=== PATIENT | male | born 1955 | race Caucasian/White ===

== ENCOUNTER 2016-12-25 18:20 | Emergency (ER) | payer MEDICAID, OTHER ==
[~2016-12-25] VITALS: Ht 152.4 cm; Wt 69.0 kg
[~2016-12-25 18:20] MED LIST: CLON-412 PO; DUR25P TOP; HYDR2TAB3 PO; TRAZ100T15 PO
[2016-12-25 18:23] VITALS: Ht 152.4 cm; Wt 69.0 kg
[2016-12-25] MEDS ORDERED: HYDROCODONE/APAP (5/325) TAB PO ONE (19:30)
[2016-12-25] MEDS ORDERED: DIPHTH/TET/ACEL PERTUSS (ADULT) 0.5 ML VIAL IM* ONE (19:30)
--- NOTE | 2016-12-25 19:45 | RADRPT ---
PROCEDURE: CT Brain without. CLINICAL INDICATION: Fall injury. TECHNIQUE: A CT of the brain was performed on multidetector high-resolution CT scanner utilizing a xial sections from the skull base through the vertex without contrast. The scan was reviewed in sof t tissue brain and high frequency resolution bone algorithm windows. Images were reviewed on a high -resolution PACS workstation. One or more the following does reduction techniques were utilized: Aut omated exposure control, adjustment of the mA/ or kV according to patient's size, or use of iterativ e reconstruction technique. The exam CTDI = 44.77 mGy and the DLP = 720.23 mGy-cm. COMPARISON: Brain CT 10/13/2012. FINDINGS: The ventricles and sulci are mildly prominent indicative of volume loss. There is no intracranial h emorrhage, mass effect or midline shift. No abnormal intra-axial or extra-axial fluid collections a re seen. The gao/white matter differentiation is preserved. There are minimal scattered foci of hypoattenuation in the white matter, which are nonspecific in et iology but likely reflect chronic small vessel ischemic changes. There are minimal intracranial vas cular calcifications consistent with atherosclerosis. The visualized paranasal sinuses are essential ly clear. Left parietal scalp soft tissue swelling is noted without underlying skull fracture. IMPRESSION: 1. No acute intracranial hemorrhage, transcortical infarction or mass effect. 2. Minimal intracranial atherosclerosis and chronic small vessel ischemic changes. 3. Mild generalized cerebral volume loss. 4. Left parietal scalp soft tissue swelling is noted without underlying skull fracture. RPTAT: HH .Phil Hutchinson MD, Date Time Electronically viewed and signed by .Phil Hutchinson MD, MD on 12/25/2016 19:44 .N/
--- NOTE | 2016-12-25 19:52 | ERD ---
ER Documentation Chief Complaint Date/Time DATE: 12/25/16 Chief Complaint Scalp laceration, head injury HPI The patient is a 61-year-old male who presents the Emergency Department with complaint of scalp laceration. 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 The patient admits to loss of consciousness for a couple seconds (per onlookers), and to sustaining a scalp laceration. He reports 6/10 throbbing pain localized to the site of the laceration, which has been intermittently bleeding since the injury. The patient notes that he has applied pressure to the wound, though it continues to bleed, particularly after taking a shower. He denies any syncope or seizure. Denies visual changes, diplopia, blurred vision, vision loss, dizziness, weakness, neck pain, neck stiffness, numbness or paresthesias. Denies any nausea or vomiting. The patient denies any current anticoagulant use, though does note that he was taking Coumadin until approximately one year ago. The patient's tetanus status is unknown. ROS All systems reviewed and are negative except as per history of present illness. Medications Home Meds Reported Medications Trazodone Hcl* (Trazodone Hcl*) 100 Mg Tablet, 200 MG PO HS 11/05/12 Hydromorphone Hcl (Dilaudid) 2 Mg Tab, PO BID 10/13/12 Fentanyl Patch* (Duragesic Patch*) 1 Patch Patch, 50 MCG TOP EVERY 3 DAYS, 0 Refills 10/13/12 Clonazepam* (Klonopin*) 1 Mg Tablet, PO QID, 0 Refills 09/19/09 Allergies Allergies: Coded Allergies: No Known Drug Allergies (Verified Allergy, Mild, 12/25/12) PMhx/Soc History of Surgery: No Anesthesia Reaction: No Hx Neurological Disorder: No Hx Respiratory Disorders: No Hx Cardiac Disorders: No Hx Psychiatric Problems: No Hx Miscellaneous Medical Probl: Yes (etoh abuser, DVT, Back pain) Hx Alcohol Use: Yes Hx Substance Use: No Hx Tobacco Use: Yes Smoking Status: Former smoker Physical Exam Vitals Vital Signs Date Time Temp Pulse Resp B/P Pulse Ox O2 Delivery O2 Flow Rate FiO2 12/25/16 18:23 98.1 71 18 154/91 99 Physical Exam GENERAL: Well-developed, well-nourished, male, in no acute distress. HEENT: Head is normocephalic. Parietal scalp laceration with small hematoma. No scleral pallor or icterus. Pupils equal, round and reactive to light. Extraocular movements intact. Conjunctiva pink. No raccoon eyes. No miller sign. No nasal CSF leak. Moist mucous membranes. Clear oropharynx. NECK: Supple. No masses, no tenderness, no lymphadenopathy. Trachea midline. No nuchal rigidity. No posterior midline tenderness. RESPIRATORY: Lungs are clear to auscultation bilaterally. Equal breath sounds. Normal expiratory effort. CARDIOVASCULAR: Regular rate and rhythm. S1 and S2 normal. GASTROINTESTINAL: Abdomen is soft, non-tender, and non-distended. BACK: No midline tenderness. EXTREMITIES: No clubbing, cyanosis, or edema. Normal skin perfusion. Moving all extremities. Muscle tone is normal. No focal swelling or erythema. NEUROLOGIC: The patient is alert, awake, and oriented x 3. No focal neurologic deficits. Cranial nerves are grossly intact. Motor and sensation grossly intact. INTEGUMENT: 1.5 cm linear laceration to the parietal scalp. No active bleeding. PSYCHIATRIC: Cooperative. Appropriate. Results 24 hrs Current Medications Medications (Trade) Dose Ordered Sig/Pat Route PRN Reason Start Time Stop Time Status Last Admin Dose Admin Diphtheria/ Tetanus/Acell Pertussis (Adacel) 0.5 ml ONCE ONCE IM* 12/25/16 19:30 12/25/16 19:31 DC 12/25/16 19:48 Acetaminophen/ Hydrocodone Bitart ([place] (5/325)) 1 tab ONCE ONCE PO 12/25/16 19:30 12/25/16 19:31 DC 12/25/16 19:38 Procedures/MDM The patient's case was reviewed and discussed with ED supervising/attending physician Dr. Rodriguez, who agrees with the plan of care including treatment and advanced imaging of appropriate. DIAGNOSTIC TESTS AND INTERPRETATION: PROCEDURE: CT Brain without. CLINICAL INDICATION: Fall injury. TECHNIQUE: A CT of the brain was performed on multidetector high-resolution CT scanner utilizing axial sections from the skull base through the vertex without contrast. The scan was reviewed in soft tissue brain and high frequency resolution bone algorithm windows. Images were reviewed on a high- resolution PACS workstation. One or more the following does reduction techniques were utilized: Automated exposure control, adjustment of the mA/ or kV according to patient's size, or use of iterative reconstruction technique. The exam CTDI = 44.77 mGy and the DLP = 720.23 mGy-cm. COMPARISON: Brain CT 10/13/2012. FINDINGS: The ventricles and sulci are mildly prominent indicative of volume loss. There is no intracranial hemorrhage, mass effect or midline shift. No abnormal intra- axial or extra-axial fluid collections are seen. The gao/white matter differentiation is preserved. There are minimal scattered foci of hypoattenuation in the white matter, which are nonspecific in etiology but likely reflect chronic small vessel ischemic changes. There are minimal intracranial vascular calcifications consistent with atherosclerosis. The visualized paranasal sinuses are essentially clear. Left parietal scalp soft tissue swelling is noted without underlying skull fracture. IMPRESSION: 1. No acute intracranial hemorrhage, transcortical infarction or mass effect. 2. Minimal intracranial atherosclerosis and chronic small vessel ischemic changes. 3. Mild generalized cerebral volume loss. 4. Left parietal scalp soft tissue swelling is noted without underlying skull fracture. .Phil Hutchinson MD, MD Date Time Electronically viewed and signed by .Phil Hutchinson MD, MD on 12/25/2016 19: 44 PROCEDURE NOTE: Laceration repair. INDICATIONS: 1.5 cm linear laceration scalp laceration. CONSENT: Consent was obtained from the patient prior to the procedure. Indications, risks and benefits were explained at length. PROCEDURAL SUMMARY: A time out protocol was performed prior to initiating the procedure. The patient was positioned appropriately. Normal saline and Betadine were used for wound irrigation. The wound was then explored, and no foreign body visualized. The area was prepared and draped in the usual sterile manner with the wound exposed. Two franca are placed with good wound closure and good wound approximation. Bleeding was minimal. The patient tolerated the procedure well without complications. The wound was dressed with bacitracin and sterile gauze. Standard post procedure care was explained and return precautions were given. On re-evaluation, the patient was resting comfortably with no pain localized to the site of injury. He was neurovascularly and neurologically intact post-procedure. Medical Decision Making: The patient is a 61-year-old male presenting to the Emergency Department with a scalp laceration s/p accidental slip and fall. Otherwise, the patient had no significant deformity, step-offs, altered mental status, or neurologic deficits on physical examination. CT head performed revealed no acute intracranial hemorrhage. No clinical evidence of significant head injury, basilar skull fracture, intracranial bleeding, spinal cord injury or any other emergent medical condition. The patient's condition was stable throughout their stay in the emergency department without any neurologic deficits present. Upon re-evaluation, the patient reports no new complaints. The patient's scalp laceration was stapled. He had good wound closure and wound approximation, and tolerated the procedure well. The patient was neurovascularly and neurologically intact prior to and status post laceration repair. Standard post-procedure care was explained to the patient at length. Upon my review and interpretation of the patient's presentation, I believe that the patient's symptoms are most consistent with scalp laceration, hematoma and head injury. At this time, the patient is in stable condition, and no signs of altered mental status, and therefore can be discharged home with strict return precautions for signs of deteriorating or worsening condition, including vomiting, altered mental status, neurologic deficit, headache, persistent fever above 100.4 F, loss of consciousness, syncope, deformities, seizure. The patient is instructed to follow up with his primary care provider within 1-2 days for wound check, re-evaluation and further management, and staple removal in 7 days, or return to the ER sooner for any new or worsening symptoms. I shared my medical decision making and plan with the patient at length and in great detail, and they verbally understand and agree with the plan for further observation and care as an outpatient. At the time of discharge, all questions were answered. Departure Diagnosis: Primary Impression: Scalp laceration Encounter type: initial encounter Qualified Code: S01.01XA - Scalp laceration, initial encounter Additional Impression: Head injury with loss of consciousness Condition: Stable Patient Instructions: HEAD INJURY, No Wake-Up (Adult), Laceration, Scalp Additional Instructions: Follow up with your primary medical provider in 2 days for wound check, reevaluation and further management. Staple removal in 7 days. Return to the ED sooner for any new or worsening symptoms. BRENT SHETTY PA-C Dec 25, 2016 19:52
== END 2016-12-25 20:17 | disposition home or self-care (01) ==
LOC: FTE 18:20
DX: S01.01XA Laceration without foreign body of scalp, initial encounter (principal); W01.198A Fall on same level from slipping, tripping and stumbling with subsequent striking against other object, initial encounter; Y92.9 Unspecified place or not applicable; Z23 Encounter for immunization; Z87.891 Personal history of nicotine dependence
CPT/HCPCS: 12001; 70450; 90471; 90715; Z7502; Z7610

== ENCOUNTER 2017-03-05 16:37 | Emergency (ER) | payer OTHER ==
[~2017-03-05] VITALS: Ht 177.8 cm; Wt 85.0 kg
[2017-03-05] MEDS ORDERED: SOD CHLORIDE 0.9% 1,000 ML IV STA (16:40)
[2017-03-05] MEDS ORDERED: LORAZEPAM 2 MG INJ IV STA (16:40)
[2017-03-05 16:44] VITALS: Ht 177.8 cm; Wt 85.0 kg
[2017-03-05 17:20] LABS: BASOPHILS % 0.7 % (0.0-2.0); EOSINOPHILS % 0.2 % (0.0-7.0); HEMATOCRIT 39.7 % (42.0-52.0); LYMPHOCYTES # 0.7 10^3/ul (0.8-2.9); LYMPHOCYTES % 10.8 % (15.0-51.0); MEAN CORPUSCULAR HEMOGLOBIN 38.6 pg (29.0-33.0); MEAN CORPUSCULAR HGB CONC 35.3 g/dl (32.0-37.0); MEAN CORPUSCULAR VOLUME 109.4 fl (82.0-101.0); MEAN PLATELET VOLUME 10.5 fl (7.4-10.4); MONOCYTE # 0.7 10^3/ul (0.3-0.9); MONOCYTES % 11.8 % (0.0-11.0); NEUTROPHIL # 4.6 10^3/ul (1.6-7.5); NEUTROPHILS % 75.8 % (39.0-77.0); PLATELET COUNT 148 10^3/UL (140-415); RED BLOOD COUNT 3.63 10^6/ul (4.70-6.10)
--- NOTE | 2017-03-05 17:21 | RADRPT ---
PROCEDURE: XR Chest 1 View. CLINICAL INDICATION: Shortness of breath. Seizure. TECHNIQUE: AP view of the chest was obtained. COMPARISON: CR CHEST 12/25/2012 FINDINGS: The cardiomediastinal silhouette is within normal limits. Azygos fissure is identified. 1.4 cm nodul ar density is identified along the right azygos fissure. No consolidations are identified. No pneum othorax is seen. Atelectasis is noted at the left lung base. Osseous structures are intact. IMPRESSION: 1.4 cm nodular density in the right upper lobe, along an azygos fissure. This could reflect a lung n odule. Appearance is unchanged from prior exam. If further characterization is needed, CT is recomme nded. Atelectasis at the left lung base. RPTAT: AA .Bubba Riley MD, MD Date Time Electronically viewed and signed by .Bubba Riley MD, MD on 03/05/2017 17:20 .P/
--- NOTE | 2017-03-05 17:28 | RADRPT ---
PROCEDURE: Noncontrast CT Head. CLINICAL INDICATION: Seizure TECHNIQUE: Noncontrast CT of the head was obtained. The administered radiation dose was CTDI vol = 43.14 mGy, DLP = 824.23 mGy-cm. One or more of the following dose reduction techniques were used: Au tomated exposure control, Adjustment of the mA and/or kV according to patient size, or Use of iterat nikkie reconstruction technique. COMPARISON: MRI brain 10/13/2012 FINDINGS: There is no acute intracranial hemorrhage, midline shift, or mass effect. No extra-axial collection is seen. The cerebral gao-white matter differentiation appears preserved. There is mild to moderate diffuse cerebral volume loss with compensatory diffuse cerebral sulcal and ventricular enlargement, similar to prior study. Mild low attenuation in the periventricular cerebral white matter is nonspe cific, but suggestive of mild chronic microangiopathic change. There is mild to moderate diffuse cer ebellar volume loss, similar to prior study. The basal cisterns are preserved. The partially imaged orbits are grossly unremarkable. The frontal sinuses are hypoplastic bilaterally. The visualized eth moid, maxillary, and sphenoid sinuses are clear. The partially imaged mastoid air cells are clear. N o acute fracture or suspicious osseous lesion is identified. IMPRESSION: 1. No evidence of an acute intracranial process. 2. Mild diffuse cerebral and cerebellar volume loss, not significantly changed compared to prior MRI of 10/13/2012. 3. Evidence of mild chronic microangiopathic cerebral white matter change. 4. Hypoplastic frontal sinuses. RPTAT: HH Physician Kiki Date Time Electronically viewed and signed by Physician Kiki on 03/05/2017 17:27 BERT/
[2017-03-05 17:42] LABS: CALCIUM 10.5 mg/dl (8.4-10.2); CREATININE 0.92 mg/dl (0.61-1.24); POTASSIUM 3.8 mmol/L (3.5-5.1)
[2017-03-05 18:02] VITALS: BP 132/83; PULSE 78; RESP 16; TEMP 98.1
--- NOTE | 2017-03-05 19:01 | ERD ---
ER Documentation Chief Complaint Date/Time DATE: 03/05/17 TIME: 18:59 Chief Complaint seizure at home drinks alcohol daily last etoh intake was an hr ago HPI Patient is a 61-year-old male with history of alcohol abuse who presents with a seizure. Please note the history and physical exam is limited as the patient cannot recall the events. The patient was brought in by a friend who said that he had a seizure. The patient says that he has no history of seizures. Upon review of old medical records this is the patient's ninth visit to the ER since 2009. He stopped drinking yesterday and does have a heavy history of alcohol abuse. The patient does not remember the name of his primary doctor. The patient says that he feels back to his baseline now. ROS All systems reviewed and are negative except as per history of present illness. Medications Home Meds Reported Medications Trazodone Hcl* (Trazodone Hcl*) 100 Mg Tablet, 200 MG PO HS 11/05/12 Hydromorphone Hcl (Dilaudid) 2 Mg Tab, PO BID 10/13/12 Fentanyl Patch* (Duragesic Patch*) 1 Patch Patch, 50 MCG TOP EVERY 3 DAYS, 0 Refills 10/13/12 Clonazepam* (Klonopin*) 1 Mg Tablet, PO QID, 0 Refills 09/19/09 Allergies Allergies: Coded Allergies: No Known Drug Allergies (Verified Allergy, Mild, 12/25/12) PMhx/Soc History of Surgery: No Anesthesia Reaction: No Hx Neurological Disorder: No Hx Respiratory Disorders: No Hx Cardiac Disorders: No Hx Psychiatric Problems: No Hx Miscellaneous Medical Probl: Yes (etoh abuser, DVT, Back pain) Hx Alcohol Use: Yes Hx Substance Use: No Hx Tobacco Use: Yes Smoking Status: Current every day smoker FmHx Family History: diabetes Physical Exam Vitals Vital Signs Date Time Temp Pulse Resp B/P Pulse Ox O2 Delivery O2 Flow Rate FiO2 03/05/17 18:02 98.1 78 16 132/83 98 Room Air 03/05/17 16:44 97.9 83 18 161/89 98 Physical Exam Const: No acute distress Head: Atraumatic Eyes: Normal Conjunctiva ENT: Normal External Ears, Nose and Mouth. Neck: Full range of motion..~ No meningismus. Resp: Clear to auscultation bilaterally Cardio: Regular rate and rhythm, no murmurs Abd: Soft, non tender, non distended. Normal bowel sounds Skin: No petechiae or rashes Back: No midline or flank tenderness Ext: No cyanosis, or edema Neur: Awake and alert, no seizure activity at this time Psych: Normal Mood and Affect Result Diagram: 03/05/17 1710 03/05/17 1710 Results 24 hrs Laboratory Tests Test 03/05/17 16:42 03/05/17 17:10 Bedside Glucose 204mg/dL White Blood Count 6.010^3/ul Red Blood Count 3.6310^6/ul Hemoglobin 14.0g/dl Hematocrit 39.7% Mean Corpuscular Volume 109.4fl Mean Corpuscular Hemoglobin 38.6pg Mean Corpuscular Hemoglobin Concent 35.3g/dl Red Cell Distribution Width 12.0% Platelet Count 50923^3/UL Mean Platelet Volume 10.5fl Neutrophils % 75.8% Lymphocytes % 10.8% Monocytes % 11.8% Eosinophils % 0.2% Basophils % 0.7% Nucleated Red Blood Cells % 0.0/100WBC Neutrophils # 4.610^3/ul Lymphocytes # 0.710^3/ul Monocytes # 0.710^3/ul Eosinophils # 0.010^3/ul Basophils # 0.010^3/ul Nucleated Red Blood Cells # 0.010^3/ul Sodium Level 132mmol/L Potassium Level 3.8mmol/L Chloride Level 93mmol/L Carbon Dioxide Level 23mmol/L Anion Gap 20 Blood Urea Nitrogen 10mg/dl Creatinine 0.92mg/dl Glucose Level 229mg/dl Calcium Level 10.5mg/dl Current Medications Medications (Trade) Dose Ordered Sig/Pat Route PRN Reason Start Time Stop Time Status Last Admin Dose Admin Sodium Chloride (NS) 1,000 ml @ 1,000 mls/hr Q1H STAT IV 03/05/17 16:40 03/05/17 17:39 DC 03/05/17 17:24 Lorazepam (Ativan) 0.5 mg ONCE STAT IV 03/05/17 16:40 03/05/17 16:41 DC 03/05/17 17:24 Procedures/MDM CT brain negative for skull fracture or hemorrhage per radiology. Patient is a 61-year-old male with alcohol abuse who presents with a seizure. I believe he likely had an alcohol withdrawal seizure. Laboratory studies are basically normal and CT brain shows no sign of intra-cranial hemorrhage or skull fracture. I believe outpatient management is appropriate and the patient was given 0.5 of Ativan IV. The patient had a DMV form filled out although he says he does not drive. The patient should follow-up with his primary doctor within 24-48 hours for reevaluation. He can return sooner for any worsening symptoms. Departure Diagnosis: Primary Impression: Seizure Condition: Fair Patient Instructions: Seizure, New Onset, Unk Cause [Adult], Alcohol Abuse Additional Instructions: Call your primary care doctor TOMORROW for an appointment during the next 1-2 days.See the doctor sooner or return here if your condition worsens before your appointment time. JOSE D GARRISON MD Mar 05, 2017 19:01
== END 2017-03-05 19:54 | disposition home or self-care (01) ==
LOC: E/R 16:37
DX: R56.9 Unspecified convulsions (principal); F17.210 Nicotine dependence, cigarettes, uncomplicated; R40.2142 Coma scale, eyes open, spontaneous, at arrival to emergency department; R40.2252 Coma scale, best verbal response, oriented, at arrival to emergency department; R40.2362 Coma scale, best motor response, obeys commands, at arrival to emergency department
CPT/HCPCS: 36415; 70450; 71010; 80048; 82962; 85025; 96361; 96374; J2060; J7030; Z7502

== ENCOUNTER 2017-03-15 18:16 | Emergency (ER) | payer SELFPAY | END 2017-03-15 21:35 | disposition left against medical advice (07) | LOC: E/R 18:16 | DX: Z53.21 Procedure and treatment not carried out due to patient leaving prior to being seen by health care provider (principal) ==

== ENCOUNTER 2017-06-21 18:33 | Emergency (ER) | END 2017-06-21 21:29 | disposition home or self-care (01) ==

== ENCOUNTER 2017-06-23 12:10 | Emergency (ER) | END 2017-06-23 13:10 | disposition home or self-care (01) ==

== ENCOUNTER 2017-07-02 15:30 | Emergency (ER) | END 2017-07-02 16:23 | disposition home or self-care (01) ==

== ENCOUNTER 2017-08-07 09:03 | Emergency (ER) | END 2017-08-07 11:49 | disposition home or self-care (01) ==